=== PATIENT | female | born 1955 | race African-American/Black ===

== ENCOUNTER 2020-01-18 13:31 | Outpatient (CLI) | payer OTHER, SELFPAY ==
--- NOTE | ~2020-01-18 | MM_ITS ---
EXAMINATION: MM diagnostic alfredo BI w janie HISTORY: Left breast pain TECHNIQUE: Additional 3-D tomosynthesis images of the breasts were performed and synthetic 2-D images were generated. CAD analysis was submitted and interpreted. COMPARISON: Comparison to multiple prior studies sequentially, with oldest reviewed study dated 05/09. FINDINGS: Breast composed of scattered areas of fibroglandular density. There are no suspicious leandra s, calcifications or architectural distortion in either breast to suggest malignancy. IMPRESSION: 1. No mammographic evidence for malignancy in either breast. 2. Routine yearly screening mammogram and regular clinical breast examination are recommended. BI-RADS Category 1: Negative Reviewed, dictated and finalized at location A. IMPRESSION: 1. No mammographic evidence for malignancy in either breast. 2. Routine yearly screening mammogram and regular clinical breast examination a re recommended. BI-RADS Category 1: Negative
== END 2020-01-18 13:32 | disposition home or self-care (01) ==
LOC: ANHIMG 13:35
PROVIDERS: Visit Provider Nurse Practitioner Obstetrics & Gynecology
DX: N64.4 Mastodynia (principal); N63.20 Unspecified lump in the left breast, unspecified quadrant
CPT/HCPCS: 77062; 77066; G0279

== ENCOUNTER 2020-02-13 15:23 | Outpatient (CLI) | payer OTHER, SELFPAY ==
--- NOTE | ~2020-02-13 | US_ITS ---
US soft tissue chest 02/13/2020 15:54 Indication: Midline low of the chest wall Procedure: Chest wall overlying the sternum Comparison: No prior studies for comparison. Findings: Normal heterogeneous soft tissues without evidence for discrete solid or cystic mass. Impression: 1: Normal limited ultrasound of the chest soft tissues in the area of palpable concern. Reviewed, dictated and finalized at location A. Impression: 1: Normal limited ultrasound of the chest soft tissues in the area of palpable concern.
== END 2020-02-13 15:24 | disposition home or self-care (01) ==
PROVIDERS: Visit Provider Obstetrics & Gynecology Gynecology
DX: R22.2 Localized swelling, mass and lump, trunk (principal)
CPT/HCPCS: 76604

== ENCOUNTER 2021-03-29 08:25 | Outpatient (CLI) | payer MEDICARE, MEDICAID, SELFPAY ==
--- NOTE | ~2021-03-29 | DEXA_ITS ---
Bone Density Report Name: Nicki Garcias Age: 65 Sex: Female Ethnicity: White Date of : 1955 Indication: postmenopausal; height loss; seizure disorder; hysterectomy; Referring Provider: GHANSHYAM JOLLY Study: Bone densitometry was performed. Exam Date: March 29, 2021 Accession number: [id number] Bone Density: Region BMD T-score Z-score Classification AP Spine (L1, L2, L3) 1.066 0.4 2.2 Normal Femoral Neck (Left) 0.704 -1.3 0.3 Osteopenia Total Hip (Left) 0.875 -0.5 0.7 Normal Total Hip Bilateral Avg 0.866 -0.6 0.7 Normal Femoral Neck (Right) 0.745 -0.9 0.6 Normal Total Hip (Right) 0.855 -0.7 0.6 Normal World Health Organization criteria for BMD impression classify patients as: Normal (T-score at or above -1.0), Osteopenia (T-score between -1.0 and -2.5), or Osteoporosis (T-score at or below -2.5). 10-year Fracture Risk(1): Major Osteoporotic Fracture 8.8% Hip Fracture 0.8% Reported Risk Factors: [place] (), Neck BMD=0.704, BMI=25.1 (1) FRAX(R) Version 3.08. Fracture probability calculated for an untreated patient. Fracture probability may be lower if the patient has received treatment. Clinical Information Provided by Patient: Has used the following medications: Vitamin D, Calcium Has the following medical conditions: Any Seizure Disorders, Hysterectomy Patient maximum height was 63 Menopause Age: 35 Does not regularly consume dairy products Onset of menses at age 13 Number of children 1 Impression: The patient has low bone mass, based on the Left Femoral Neck T-score. The patient has an estimated ten-year risk of hip fracture of 0.8% and an estimated ten-year risk of major fracture of 8.8%, based on the WHO FRAX algorithm. Discussion: BONE DENSITY IS LOW AT ONE OR MORE SKELETAL SITES. This patient's lowest T-score is low at one or more skeletal sites. It meets the World Health Organization's (WHO) criteria for ?low bone mass? (T-score between -1.0 and -2.5). The patient's 10-year risk of fracture as calculated by FRAX is less than the threshold where pharmacological therapy is recommended by the National Osteoporosis Foundation (NOF). However, all treatment decisions require clinical judgment and consideration of individual patient factors, including patient preferences, comorbidities, previous drug use, risk factors not captured in the FRAX model (e.g., frailty, falls, vitamin D deficiency, increased bone turnover, interval significant decline in bone density) and possible under or overestimation of fracture risk by FRAX. The patient should follow a healthful lifestyle (good nutrition with adequate calcium and vitamin D, and appropriate weight-bearing exercise). Follow-Up: Consider repeating this study in 2 to 3 years to reassess this patient's status, or sooner if ther
--- NOTE | ~2021-03-29 | MM_ITS ---
EXAMINATION: MM screening alfredo BI w janie HISTORY: Screening mammogram TECHNIQUE: Craniocaudal and mediolateral oblique 3-D tomosynthesis images were obtained and synthetic 2-D images were generated. CAD analysis was submitted and interpreted. COMPARISON: 01/18/2020, 11/01/2018, 09/15/2017 bilateral digital screening mammogram examinations BREAST PARENCHYMAL COMPOSITION: There are scattered areas of fibroglandular density. FINDINGS: There is no evidence of suspicious mass, calcification, or architectural distortion to sugg est malignancy in either breast. There has been no suspicious interval change. IMPRESSION: 1. No mammographic evidence of malignancy. 2. Recommend routine screening mammography in one year. BI-RADS Category 1: Negative Reviewed, dictated and finalized at location A.
== END 2021-03-29 08:26 | disposition home or self-care (01) ==
LOC: ANHIMG 08:28
PROVIDERS: Visit Provider Obstetrics & Gynecology Gynecology
DX: Z12.31 Encounter for screening mammogram for malignant neoplasm of breast (principal); Z78.0 Asymptomatic menopausal state; M85.852 Other specified disorders of bone density and structure, left thigh
CPT/HCPCS: 77063; 77067; 77080

== ENCOUNTER 2022-06-26 11:10 | Outpatient (CLI) | payer MEDICARE, MEDICAID, SELFPAY ==
--- NOTE | ~2022-06-26 | MM_ITS ---
EXAMINATION: MM screening alfredo BI w janie HISTORY: Screening TECHNIQUE: Craniocaudal and mediolateral oblique 3-D tomosynthesis images were obtained and synthetic 2-D images were generated. CAD analysis was submitted and interpreted. COMPARISON: Comparison to multiple prior studies sequentially, with oldest reviewed study dated 08/19. BREAST PARENCHYMAL COMPOSITION: There are scattered areas of fibroglandular density. FINDINGS: There is no evidence of suspicious mass, calcification, or architectural distortion to sugg est malignancy in either breast. There has been no suspicious interval change. IMPRESSION: 1. No mammographic evidence of malignancy. 2. Recommend routine screening mammography in one year. BI-RADS Category 1: Negative Reviewed, dictated and finalized at location A. TECHNICIAN
== END 2022-06-26 11:11 | disposition home or self-care (01) ==
PROVIDERS: Visit Provider Obstetrics & Gynecology Gynecology
DX: Z12.31 Encounter for screening mammogram for malignant neoplasm of breast (principal)
CPT/HCPCS: 77063; 77067

== ENCOUNTER 2023-10-07 14:55 | Outpatient (CLI) | payer MEDICARE, MEDICAID, SELFPAY ==
--- NOTE | ~2023-10-07 | MM_ITS ---
EXAMINATION: MM screening alfredo BI w janie HISTORY: Screening TECHNIQUE: Craniocaudal and mediolateral oblique 3-D tomosynthesis images were obtained and synthetic 2-D images were generated. CAD analysis was submitted and interpreted. COMPARISON: Comparison to multiple prior studies sequentially, with oldest reviewed study dated 11/01. BREAST PARENCHYMAL COMPOSITION: There are scattered areas of fibroglandular density. FINDINGS: There is no evidence of suspicious mass, calcification, or architectural distortion to sugg est malignancy in either breast. There has been no suspicious interval change. IMPRESSION: 1. No mammographic evidence of malignancy. 2. Recommend routine screening mammography in one year. BI-RADS Category 1: Negative Reviewed, dictated and finalized at location A. ASTRUCTURE ANALYST
== END 2023-10-07 14:56 | disposition home or self-care (01) ==
PROVIDERS: Visit Provider Obstetrics & Gynecology Gynecology
DX: Z12.31 Encounter for screening mammogram for malignant neoplasm of breast (principal)
CPT/HCPCS: 77063; 77067

== ENCOUNTER 2023-11-11 10:27 | Outpatient (CLI) | payer MEDICARE, MEDICAID, SELFPAY ==
--- NOTE | ~2023-11-11 | DEXA_ITS ---
Bone Density Report Name: OWEN ARCE Age: 68 Sex: Female Ethnicity: White Date of : 1955 Indication: postmenopausal; screening for osteoporosis; height loss; history of glucocorticoids; seizure disorder; hysterectomy; Referring Provider: GHANSHYAM JOLLY Study: Bone densitometry was performed. Exam Date: November 11, 2023 Accession number: [id number] Bone Density: Region BMD T-score Z-score Classification AP Spine(L1, L2, L3) 1.066 0.4 2.4 Normal Femoral Neck (Left) 0.775 -0.7 1.0 Normal Total Hip (Left) 0.939 0.0 1.4 Normal Femoral Neck (Right) 0.787 -0.6 1.2 Normal Total Hip (Right) 0.894 -0.4 1.0 Normal Total Hip Mean 0.917 -0.2 1.2 Normal World Health Organization criteria for BMD impression classify patients as: Normal (T-score at or above -1.0), Osteopenia (T-score between -1.0 and -2.5), or Osteoporosis (T-score at or below -2.5). 10-year Fracture Risk: FRAX not reported because: All T-scores for Spine Total, Hip Total, Femoral Neck at or above -1.0 Clinical Information Provided by Patient: Smokes Has taken Glucocorticoids Has used the following medications: Vitamin D Has the following medical conditions: Any Seizure Disorders, Hysterectomy Patient maximum height was 62 Menopause Age: 35 Onset of menses at age 12 Number of children 1 Impression: The patient has normal bone mass. The patient has risk factors, including: smoking, history of glucocorticoid therapy. Discussion: BONE DENSITY IS ABOVE THE MINIMUM DESIRABLE LEVEL AT ALL SKELETAL SITES TESTED. This patient?s bone mineral density is above the minimum desirable level (T-score -1.0 or better) at all sites measured. The patient should follow a healthful lifestyle (good nutrition with adequate calcium and vitamin D, and appropriate weight-bearing exercise). Follow-Up: Consider repeating this study in 5 years or sooner if there is some new clinical indication. Reported by: PAYAL on 11/11/2023 11:02:00 AM. Reviewed, dictated and finalized at location [facility]
== END 2023-11-11 10:28 | disposition home or self-care (01) ==
PROVIDERS: Visit Provider Obstetrics & Gynecology Gynecology
DX: Z78.0 Asymptomatic menopausal state (principal)
CPT/HCPCS: 77080

== ENCOUNTER 2023-11-11 11:10 | Emergency (ER) | payer MEDICARE, MEDICAID, SELFPAY ==
--- NOTE | ~2023-11-11 | CT_ITS ---
EXAMINATION: CT lumbar spine wo con DATE: 11/11/2023 12:11 INDICATION: Low back pain. Left lower extremity radiculopathy. TECHNIQUE: Computed tomography (CT) of the lumbar spine was performed without intravenous contrast. A utomated exposure control and iterative reconstruction technique were employed. The dose-length produ ct was 254.99 mGy-cm. COMPARISON: None FINDINGS: There is 6 degrees dextrocurvature of lumbar spine. There is 3 mm anterolisthesis of L4 on L5 and L5 on S1. There is mild chronic anterior wedging of L1 vertebral body. There is mildly decreas ed disc height at T12-L1 and L1-L2, severely decreased disc height at L2-L3 and L3-L4, moderately dec reased disc height at L4-L5, and severely decreased disc height at L5-S1. There is Baastrup disease a t L4-L5. The following disc levels are specifically discussed: L1-L2: The disc is bulging. There is mild right and moderate left facet joint osteoarthritis. There i s mild right neural foraminal stenosis. There is mild central canal stenosis. L2-L3: The disc is bulging. There is severe bilateral facet joint osteoarthritis. There is mild bilat eral neural foraminal stenosis. There is mild central canal stenosis. L3-L4: The disc is bulging. There is severe bilateral facet joint osteoarthritis. There is mild bilat eral neural foraminal stenosis. There is mild central canal stenosis. L4-L5: The disc is bulging. There is severe bilateral facet joint osteoarthritis. There is moderate b ilateral neural foraminal stenosis. There is moderate central canal stenosis. L5-S1: The disc is bulging. There is severe bilateral facet joint osteoarthritis. There is moderate r ight and mild left neural foraminal stenosis. There is mild central canal stenosis. IMPRESSION: 1. Severe lumbar spondylosis. Reviewed, dictated and finalized at location A.
[2023-11-11 11:13] VITALS: BP 146/69; PULSE 101; RESP 20; TEMP 36.4; O2SAT 100
--- NOTE | 2023-11-11 11:48 | ED.BACK ---
HPI - Back Pain/Injury General Chief Complaint: Extremity Injury, Lower Stated Complaint: right sided sciatic nerve pain Time Seen by Provider: 11/11/23 11:34 Source: patient Mode of arrival: ambulatory Limitations: no limitations History of Present Illness HPI Narrative: Patient is a 68 y/o female, with pmh of seizure disorder, cerebral white matter disease, Parkinson's disease, who presents to the ED with c/o lower back pain. Patient reports having pain since waking up on Wednesday. Pain present across her lower back, intermittently radiates to her hips. Began to radiate down her left posterior leg yesterday. Patient has been taking Tylenol for the pain without much relief. She is able to ambulate, but has discomfort with this. Denies bowel or bladder incontinence, saddle anesthesia, numbness, weakness, abdominal pain, nausea, vomiting, fevers, lower extremity swelling. Related Data Allergies Allergy/AdvReac Type Severity Reaction Status Date / Time tramadol Allergy Seizure Verified 11/11/23 11:37 pcn Allergy Intermediate rash Uncoded 11/11/23 11:37 Review of Systems Review of Systems: CONSTITUTIONAL: Denies fever, chills, or sweats. GASTROINTESTINAL: Denies incontinence, abdominal pain, nausea, vomiting, or diarrhea. GENITOURINARY: Denies incontinence, dysuria or hematuria. MUSCULOSKELETAL: See HPI. NEUROLOGIC: Denies headache, dizziness, numbness, or weakness. All systems reviewed & are unremarkable except as noted in HPI and below Exam Narrative: GENERAL: Chronically ill appearing, well-nourished, non-toxic, in no acute distress. HEAD: Normocephalic, atraumatic. RESPIRATORY: Airway patent, respirations nonlabored. Clear to auscultation bilaterally, no rales, rhonchi, wheezing. CARDIOVASCULAR: Regular rate and rhythm without murmurs, rubs, or gallops. Pedal pulses easily palpable. MUSCULOSKELETAL: Moves all extremities. No gross deformities. Diffuse tenderness throughout lumbosacral region bilateral paraspinal musculature extending into bilateral SI joints, worse on the left. No palpable bony deformities. No palpable step offs. Sensation is intact. Positive straight leg raise on L, reproducing pain in left lower back. SKIN: Warm, dry, normal color. NEURO: A&O X3. Speech clear. Cranial nerves II-XII grossly intact. No focal neurologic deficits. PSYCHIATRIC: Appropriate mood and affect. Normal interaction. Course Vital Signs Vital signs: Vital Signs Temperature 97.5 F L 11/11/23 11:13 Pulse Rate 101 H 11/11/23 11:13 Respiratory Rate 20 11/11/23 11:13 Blood Pressure 146/69 H 11/11/23 11:13 Pulse Oximetry 100 11/11/23 11:13 Oxygen Delivery Room Air 11/11/23 11:13 Temperature 97.5 F L 11/11/23 11:13 Pulse Rate 95 11/11/23 14:04 Respiratory Rate 18 11/11/23 14:04 Blood Pressure 139/84 11/11/23 14:04 Pulse Oximetry 96 11/11/23 14:04 Oxygen Delivery Room Air 11/11/23 11:13 MDM - Back Pain/Injury MDM Narrative Medical decision making narrative: Patient presented to ED with several day history of lower back pain, radiating into left lower extremity yesterday. Pain worse with movement. Seems musculoskeletal in nature. Vitals are stable. Patient without any neurologic deficits appreciated on exam. Positive straight leg raise on left, reproducing pain. No evidence of cord compression or cauda equina at this time. No red flag symptoms. Again, neurologic exam is normal. CT lumbar spine obtained and showing severe spondylosis, several bulges discs - which patient was aware of, no acute malalignment, no severe central canal stenosis. Patient updated on imaging results. She is feeling better with supportive therapy. Pain improved. Will discharge with Medrol Dosepak, muscle relaxers, lidocaine patches for home use. Advised patient have close follow-up with primary care doctor for further evaluation. Will provide neurosurgery information for follow-up. She was given ret
[2023-11-11] MEDS: ACETAMINOPHEN 500 MG TABLET PO (11:54)
[2023-11-11] MEDS: methylPREDNISolone SOD SUCC 125 MG VIAL IM (11:54)
[2023-11-11] MEDS: methocarbamoL 500 MG TABLET 1000 MG PO (11:55)
[2023-11-11 14:04] VITALS: BP 139/84; PULSE 95; RESP 18; O2SAT 96
== END 2023-11-11 14:10 | disposition home or self-care (01) ==
PROVIDERS: Emergency Provider Physician Assistant
DX: S39.012A Strain of muscle, fascia and tendon of lower back, initial encounter (principal); M47.816 Spondylosis without myelopathy or radiculopathy, lumbar region; G40.909 Epilepsy, unspecified, not intractable, without status epilepticus; G20.A1 Parkinson's disease without dyskinesia, without mention of fluctuations; R90.82 White matter disease, unspecified; X58.XXXA Exposure to other specified factors, initial encounter
CPT/HCPCS: 72131; 96372; 99284; A9270; J2919

== ENCOUNTER 2024-04-06 12:19 | Emergency (ER) | payer MEDICARE, MEDICAID, SELFPAY ==
[2024-04-06 12:36] VITALS: BP 126/73; PULSE 91; RESP 14; TEMP 36.3; O2SAT 100
--- NOTE | 2024-04-06 13:19 | ED.GENADULT ---
HPI - General Adult General Chief complaint: Unspecified Stated complaint: cough,issue with eyes,sore shoulders Time Seen by Provider: 04/06/24 13:50 Source: patient, RN notes reviewed and old records reviewed Mode of arrival: ambulatory Limitations: no limitations History of Present Illness HPI narrative: Sinus pain and pressure for 1 week, postnasal drainage. Sore throat. Symptoms are worsening. No improvement with [id number] remedies. No fever, chills, sweats. Does affirm malaise. Denies any injury or trauma Related Data Home Medications Medication Instructions Recorded Confirmed albuterol sulfate 90 mcg/actuation 2 puff inhalation PRN PRN Wheezing 04/06/24 04/06/24 aerosol inhaler benzonatate 100 mg capsule 100 mg PO TID 04/06/24 04/06/24 clonazepam 1 mg tablet 1 mg PO DAILY 04/06/24 04/06/24 clopidogrel 75 mg tablet 75 mg PO DAILY 04/06/24 04/06/24 diphenhydramine HCl 25 mg tablet 25 mg PO TID 04/06/24 04/06/24 (Banophen) duloxetine 30 mg capsule,delayed 30 mg PO DAILY 04/06/24 04/06/24 release famotidine 20 mg tablet 20 mg PO BID 04/06/24 04/06/24 gabapentin 300 mg capsule 300 mg PO TID 04/06/24 04/06/24 hydroxyzine HCl 25 mg tablet 25 mg PO TID 04/06/24 04/06/24 levetiracetam 1,000 mg tablet 1,000 mg PO BID 04/06/24 04/06/24 lisinopril 10 1 tablet PO DAILY 04/06/24 04/06/24 mg-hydrochlorothiazide 12.5 mg tablet simvastatin 20 mg tablet 20 mg PO DAILY 04/06/24 04/06/24 Allergies Allergy/AdvReac Type Severity Reaction Status Date / Time tramadol Allergy Seizure Verified 04/06/24 12:55 pcn Allergy Intermediate rash Uncoded 04/06/24 12:55 Review of Systems Review of Systems: All systems reviewed & are unremarkable except as noted in HPI and below Constitutional: Constitutional: Reports as per HPI, Reports no additional constitutional complaints and Reports malaise ENT: Reports system reviewed and no additional complaints, except as documented, Reports as per HPI, Reports nasal congestion, Reports nasal discharge, Reports nasal obstruction and Reports sore throat Cardiovascular: Cardiovascular: Reports no additional cardiovascular complaints Respiratory: Respiratory: Reports no additional respiratory complaints Gastrointestinal: Gastrointestinal: Reports no additional gastrointestinal complaints PMFSH Comments At the time of my signature, I reviewed and agree with the nursing past medical, surgical, social, and family history. There is no relevant family history pertinent to the patient complaint. Exam Const: General: cooperative, no acute distress, alert and awake Orientation/consciousness: oriented to person, oriented to place and oriented to time HENMT: Head: normal to inspection Ears: TM abnormal with fluid behind the TM bilateral Face/Nose/Sinus: sinus tenderness and Facial tenderness on exam of face and sinuses Mouth: Yes moist mucous membranes Throat: posterior oropharynx abnormal erythema and postnasal drainage Resp: Effort & Inspection: normal respiratory effort and able to speak in complete sentences Auscultation: clear to auscultation bilaterally, no crackles, no rales, no rhonchi and no wheezes Cardio: Palpation: normal PMI Rate: regular rate Rhythm: regular rhythm Heart sounds: S1 normal heart sound present and S2 normal heart sound present Neuro: General: oriented to person, oriented to place and oriented to time Cranial nerves: Yes CN's II-XII intact bilaterally Psych: Appearance: grossly normal Thought process: Normal thought process present Insight: Good insight present (Psych) Judgement: Good judgement present (Psych) Course Course Level of Care: Express Care Visit Vital Signs Vital signs: Vital Signs Temperature 97.4 F L 04/06/24 12:36 Pulse Rate 91 04/06/24 12:36 Respiratory Rate 14 04/06/24 12:36 Blood Pressure 126/73 04/06/24 12:36 Pulse Oximetry 100 04/06/24 12:36 Oxygen Delivery Room Air 04/06/24 12:36 Temperature 9
== END 2024-04-06 14:00 | disposition home or self-care (01) ==
PROVIDERS: Emergency Provider Nurse Practitioner Family
DX: J32.9 Chronic sinusitis, unspecified (principal); E78.00 Pure hypercholesterolemia, unspecified; I10 Essential (primary) hypertension; K21.9 Gastro-esophageal reflux disease without esophagitis
CPT/HCPCS: 99213; G0463

== ENCOUNTER 2024-10-10 08:26 | Outpatient (CLI) | payer MEDICARE, MEDICAID, SELFPAY | END 2024-10-10 08:27 | disposition home or self-care (01) | LOC: ANHIMG 08:29 | PROVIDERS: Visit Provider Nurse Practitioner | DX: Z12.31 Encounter for screening mammogram for malignant neoplasm of breast (principal) | CPT/HCPCS: 77063; 77067 ==